=== PATIENT | male | born 2000 | race Caucasian/White ===

== ENCOUNTER 2023-07-06 16:31 | Emergency (ER) | payer OTHER ==
[~2023-07-06] VITALS: Ht 182.9 cm; Wt 98.9 kg
[2023-07-06 16:49] VITALS: BP 135/87; PULSE 62; RESP 20; TEMP 98.2; O2SAT 99
[2023-07-06 16:55] VITALS: O2SAT 99
[2023-07-06] MEDS ORDERED: KETOROLAC 60 MG/2 ML VIAL IM ONE (17:45)
[2023-07-06] MEDS ORDERED: ATA25 PO (18:26)
[2023-07-06] MEDS ORDERED: IBUP-2213 PO (18:26)
== END 2023-07-06 18:35 | disposition home or self-care (01) ==
LOC: MED 16:31
DX: R07.89 Other chest pain (principal); Z79.899 Other long term (current) drug therapy
CPT/HCPCS: 93005; 96372; 99283; J1885